=== PATIENT | female | born 1965 | race Two or more races ===

== ENCOUNTER 2021-09-27 08:39 | Emergency (ER) | payer BC ==
[~2021-09-27] VITALS: Ht 167.6 cm; Wt 90.7 kg
[2021-09-27 08:50] VITALS: BP 151/110
[2021-09-27] MEDS ORDERED: methylPREDNISolone SOD SUCC 125 MG/2 ML VL IM ONE (10:00)
[2021-09-27] MEDS ORDERED: METH4PAK PO (10:08)
== END 2021-09-27 10:13 | disposition home or self-care (01) ==
LOC: ER 08:39
DX: T78.3XXA Angioneurotic edema, initial encounter (principal); I10 Essential (primary) hypertension; Z95.1 Presence of aortocoronary bypass graft; X58.XXXA Exposure to other specified factors, initial encounter
CPT/HCPCS: 96372; 99283; J2930